=== PATIENT | female | born 1975 | race Caucasian/White ===

== ENCOUNTER 2016-07-18 21:02 | Emergency (ER) | payer OTHER ==
[~2016-07-18 21:02] MED LIST: PERCOCET 5/31 TABLET PO; WARFARIN SODIUM4 MG PO
[2016-07-18 21:10] VITALS: BP 126/76
== END 2016-07-19 00:31 | disposition left against medical advice (07) ==
LOC: EME 21:02
DX: R41.82 Altered mental status, unspecified (principal); Z53.21 Procedure and treatment not carried out due to patient leaving prior to being seen by health care provider
CPT/HCPCS: 99281; 99284